=== PATIENT | female | born 1985 | race Caucasian/White ===

== ENCOUNTER → 2017-09-02 | Outpatient (CLI) | payer OTHER ==
[~2017-09-02] VITALS: Ht 165.1 cm; Wt 51.3 kg
[~2017-09-02] MED LIST: ALEVE220 MG PO; COMBIVENT200 INHALA IH; FLONASE16 G1 BOTH NARES; MOTRIN800 MG PO; MUCINEX D ER T1 EACH PO; MULTIVITAMIN1 EAC2 PO; POTASSIUM PO; PREDNISONE20 MG PO; TESSALON PERLE100 MG PO; ZOFRAN4 MG PO
[2017-09-02 11:27] VITALS: BP 120/69
== END | disposition home or self-care (01) ==
LOC: IVINF 11:20
DX: Z34.83 Encounter for supervision of other normal pregnancy, third trimester (principal); Z31.82 Encounter for Rh incompatibility status; Z3A.30 30 weeks gestation of pregnancy; Z67.41 Type O blood, Rh negative
CPT/HCPCS: 96372; J2790

== ENCOUNTER 2017-09-06 15:42 | Outpatient (CLI) | payer OTHER ==
[2017-09-06 16:02] VITALS: BP 132/66
== END 2017-09-06 18:00 | disposition home or self-care (01) ==
LOC: LDRP-OP 15:42 → 2WEST 15:43
DX: O36.8130 Decreased fetal movements, third trimester, not applicable or unspecified (principal); Z3A.30 30 weeks gestation of pregnancy
CPT/HCPCS: 59025; G0378